=== PATIENT | female | born 2000 | race Two or more races ===

== ENCOUNTER 2022-03-16 01:58 | Emergency (ER) | payer SELFPAY ==
[2022-03-16] MEDS ORDERED: Amoxicillin 500 MG Cap PO ONE (03:15)
== END 2022-03-16 03:29 | disposition home or self-care (01) ==
LOC: FB.ED 01:58
DX: J02.8 Acute pharyngitis due to other specified organisms (principal); B96.89 Other specified bacterial agents as the cause of diseases classified elsewhere; Z72.0 Tobacco use; Z86.16 Personal history of COVID-19
CPT/HCPCS: 87651; 99283; A9270